=== PATIENT | male | born 1960 | race Hispanic/Latino ===

== ENCOUNTER 2022-10-23 07:16 | Day surgery (SDC) | payer OTHER, MEDICARE ==
[2022-10-21 10:25] VITALS: BP 137/77
[2022-10-21 10:40] LABS: BASOPHILS % (AUTO) 0.4 % (0.0-5.0); EOSINOPHILS % (AUTO) 3.6 % (0.0-8.0); HEMATOCRIT 45.7 % (42-54); LYMPHOCYTES % (AUTO) 23.3 % (21.0-51.0); MEAN CORPUSCULAR HEMOGLOBIN 30.1 pg (27.0-33.0); MEAN CORPUSCULAR HGB CONC 31.3 g/dL (32.0-36.0); MEAN CORPUSCULAR VOLUME 96.2 fL (79-99); MONOCYTES % (AUTO) 6.4 % (3.0-13.0); PLATELET COUNT (AUTO) 110 K/uL (130-400); RED BLOOD CELL COUNT(AUTO) 4.75 MIL/uL (4.50-6.20); RED CELL DISTRIBUTION WIDTH 14.8 % (11.0-15.5); WHITE BLOOD COUNT (AUTO) 6.9 K/uL (4.8-10.8)
[2022-10-21 10:49] LABS: INR 1.03 (0.85-1.15); PROTHROMBIN TIME 11.2 SEC (9.6-11.6)
[2022-10-21 10:50] LABS: CREATININE 1.4 mg/dL (0.5-1.5); POTASSIUM 4.9 mmol/L (3.5-5.1)
[2022-10-21 10:51] LABS: PARTIAL THROMBOPLASTIN TIME 28.9 SEC (26.3-35.5)
[2022-10-21 11:08] LABS: B-TYPE NATRIURETIC PEPTIDE 427 pg/mL (0-100)
[2022-10-21 11:15] LABS: APPEARANCE,URINE CLEAR (CLEAR); BILIRUBIN,URINE NEGATIVE (NEGATIVE); COLOR,URINE LIGHT-YELLOW (YELLOW); GLUCOSE, URINE (UA) NEGATIVE (NEGATIVE); KETONES,URINE NEGATIVE (NEGATIVE); LEUKOCYTE ESTERASE ,URINE NEGATIVE Leu/uL (NEGATIVE); NITRATE,URINE NEGATIVE (NEGATIVE); PH,URINE 5.5 (5.0-8.0); PROTEIN,URINE 20 mg/dL (NEGATIVE); UROBILINOGEN,URINE 0.2 mg/dL (0.2-1.0)
[2022-10-21 11:52] LABS: MUCUS,URINE RARE LPF (None Seen); RBC,URINE 0-1 /HPF (0-1)
[~2022-10-23] VITALS: Ht 172.7 cm; Wt 81.3 kg
[2022-10-23] VITALS (9 sets, daily range): BP systolic 106–117; BP diastolic 64–72
[~2022-10-23 07:16] MED LIST: ALLO100T PO; ASPI-1443 PO; ATOR40TA71 PO; CLOP75TA32 PO; DUTA0.5C37 PO; ERGO500093 PO; ESOM40CA54 PO; FISH1CAP27 PO; FLUT16H NASAL; FURO20TA4 PO; GABA-531 PO; LINA5TAB PO; LOSA25TA41 PO; METO-391 PO; NITR0.4T50 SL; PHARMACY COMMUNICATION MISC SCH; PRAM0.5T12 PO; albuterol sulfate IH
[2022-10-23] MEDS ORDERED: 0.9%NACL 1000ML 1,000 ML IV ONE (08:43)
[2022-10-23] MEDS ORDERED: HEPARIN 10,000 UNIT/10ML (1,000 UNIT/ML) VIAL ONE (11:36)
[2022-10-23] MEDS ORDERED: IOHEXOL 350 MG/ML 100ML INFUS..BTL IV ONE (11:37)
[2022-10-23] MEDS ORDERED: IOHEXOL-350 50ML VIAL IV ONE (11:37)
[2022-10-23] MEDS ORDERED: MEPERIDINE-PF 25 MG/ML SYG ONE ×2 (11:37→11:47)
[2022-10-23] MEDS ORDERED: MIDAZOLAM HCL 1 MG/ML 2ML VIAL ONE ×2 (11:37→11:47)
[2022-10-23] MEDS ORDERED: LIDOCAINE HCL 400MG/20ML VIAL ONE (11:37)
[2022-10-23] MEDS ORDERED: DEXTROSE 50%-WATER 50 ML DISP.SYRIN IV PRN (12:30)
[2022-10-23] MEDS ORDERED: GLUCAGON 1MG KIT 1 MG ML IM PRN (12:30)
[2022-10-23] MEDS ORDERED: 0.9%NACL 1000ML 1,000 ML IV SCH (12:30)
[2022-10-23] MEDS ORDERED: INSULIN HUMULIN R 100 UNIT/ML 3ML SQ SCH (16:30)
== END 2022-10-23 16:15 | disposition home or self-care (01) ==
LOC: DAH 07:16
PROVIDERS: ATTEND Internal Medicine Cardiovascular Disease
DX: I25.119 Atherosclerotic heart disease of native coronary artery with unspecified angina pectoris (principal); I25.82 Chronic total occlusion of coronary artery; E11.51 Type 2 diabetes mellitus with diabetic peripheral angiopathy without gangrene; E11.22 Type 2 diabetes mellitus with diabetic chronic kidney disease; I13.0 Hypertensive heart and chronic kidney disease with heart failure and stage 1 through stage 4 chronic kidney disease, or unspecified chronic kidney disease; N18.30 Chronic kidney disease, stage 3 unspecified; I50.42 Chronic combined systolic (congestive) and diastolic (congestive) heart failure; K21.9 Gastro-esophageal reflux disease without esophagitis; M19.90 Unspecified osteoarthritis, unspecified site; M06.9 Rheumatoid arthritis, unspecified; Z79.899 Other long term (current) drug therapy; Z79.01 Long term (current) use of anticoagulants; Z79.82 Long term (current) use of aspirin; Z98.890 Other specified postprocedural states; Z82.49 Family history of ischemic heart disease and other diseases of the circulatory system
CPT/HCPCS: 80048; 83880; 85025; 85610; 85730; 81001; 36415; 71045; 93005; 93459; 82948; C1894; C1760; J3490; J7030; J2250 ×2; J2175 ×2; J1644; Q9967; A4215; A4222; A4221; A4663; A4216; A4606; Q9965; A4223 ×3; 96360; 96361; 99156; 99157

== ENCOUNTER → 2023-06-16 | Outpatient (CLI) | payer OTHER, MEDICARE ==
[~2023-06-16] VITALS: Ht 172.7 cm; Wt 80.7 kg
[~2023-06-16] MED LIST changes: +BUME1TAB6 PO; +LEVO5TAB13 PO; -PHARMACY COMMUNICATION MISC SCH; +TADA5TAB5 PO
[2023-06-16 13:29] LABS: BASOPHILS # (AUTO) 0.03 K/uL (0.00-0.20); BASOPHILS % (AUTO) 0.5 % (0.0-5.0); EOSINOPHILS # (AUTO) 0.16 K/uL (0.00-0.70); EOSINOPHILS % (AUTO) 2.7 % (0.0-8.0); HEMATOCRIT 44.9 % (42-54); IMMATURE GRANULOCYTE ABSOLUTE 0.01 K/uL (0-1); LYMPHOCYTES # (AUTO) 1.4 K/uL (1.0-4.8); LYMPHOCYTES % (AUTO) 23.4 % (21.0-51.0); MONOCYTES # (AUTO) 0.3 K/uL (0.1-1.0); MONOCYTES % (AUTO) 5.3 % (3.0-13.0); NEUTROPHILS % (AUTO) 67.9 % (40.0-77.0); PLATELET COUNT (AUTO) 109 K/uL (130-400); RED BLOOD CELL COUNT(AUTO) 4.63 MIL/uL (4.50-6.20); RED CELL DISTRIBUTION WIDTH 14.5 % (11.0-15.5); WHITE BLOOD COUNT (AUTO) 5.9 K/uL (4.8-10.8)
[2023-06-16 13:32] LABS: CREATININE 1.6 mg/dL (0.5-1.5); POTASSIUM 4.3 mmol/L (3.5-5.1)
[2023-06-16 13:37] LABS: INR 3.37 (0.85-1.15)
[2023-06-16 14:13] LABS: PROTHROMBIN TIME 36.1 SEC (9.6-11.6)
[2023-06-16 14:18] VITALS: BP 124/56; PULSE 63; RESP 18
[2023-06-16 15:00] LABS: INR 2.73 (0.85-1.15); PROTHROMBIN TIME 29.7 SEC (9.6-11.6)
[2023-06-16 15:01] LABS: PARTIAL THROMBOPLASTIN TIME 29.9 SEC (26.3-35.5)
== END | disposition home or self-care (01) ==
LOC: DAH 10:00 → EDSTATUS 11:00
PROVIDERS: ATTEND Internal Medicine Cardiovascular Disease
DX: Z01.818 Encounter for other preprocedural examination (principal); I25.5 Ischemic cardiomyopathy; R06.02 Shortness of breath; R07.9 Chest pain, unspecified; I34.0 Nonrheumatic mitral (valve) insufficiency; I27.20 Pulmonary hypertension, unspecified; I25.10 Atherosclerotic heart disease of native coronary artery without angina pectoris; I10 Essential (primary) hypertension; E78.5 Hyperlipidemia, unspecified; Z79.82 Long term (current) use of aspirin; Z79.899 Other long term (current) drug therapy; Z95.1 Presence of aortocoronary bypass graft
CPT/HCPCS: 36415; 80048; 85025; 85610; 85730; 93005

== ENCOUNTER 2023-07-22 07:03 | Day surgery (SDC) | payer OTHER, MEDICARE ==
[2023-07-20 13:15] VITALS: BP 122/68; PULSE 67; RESP 20
[2023-07-20 13:15] LABS: BASOPHILS # (AUTO) 0.04 K/uL (0.00-0.20); BASOPHILS % (AUTO) 0.6 % (0.0-5.0); EOSINOPHILS # (AUTO) 0.25 K/uL (0.00-0.70); EOSINOPHILS % (AUTO) 3.8 % (0.0-8.0); IMMATURE GRANULOCYTE ABSOLUTE 0.04 K/uL (0-1); LYMPHOCYTES # (AUTO) 1.8 K/uL (1.0-4.8); LYMPHOCYTES % (AUTO) 27.8 % (21.0-51.0); MEAN CORPUSCULAR HEMOGLOBIN 32.6 pg (27.0-33.0); MEAN CORPUSCULAR HGB CONC 32.7 g/dL (32.0-36.0); MEAN CORPUSCULAR VOLUME 99.6 fL (79-99); MONOCYTES # (AUTO) 0.4 K/uL (0.1-1.0); MONOCYTES % (AUTO) 6.4 % (3.0-13.0); NEUTROPHILS % (AUTO) 60.8 % (40.0-77.0); PLATELET COUNT (AUTO) 155 K/uL (130-400); RED BLOOD CELL COUNT(AUTO) 4.82 MIL/uL (4.50-6.20); RED CELL DISTRIBUTION WIDTH 13.8 % (11.0-15.5); WHITE BLOOD COUNT (AUTO) 6.5 K/uL (4.8-10.8)
[2023-07-20 13:20] LABS: CREATININE 1.5 mg/dL (0.5-1.5)
[2023-07-20 13:31] LABS: INR < 0.93 (0.85-1.15); PROTHROMBIN TIME 10.8 SEC (9.6-11.6)
[2023-07-20 13:33] LABS: PARTIAL THROMBOPLASTIN TIME 29.3 SEC (26.3-35.5)
[~2023-07-22] VITALS: Ht 176.5 cm; Wt 77.9 kg
[2023-07-22] VITALS (12 sets, daily range): BP systolic 101–121; BP diastolic 55–83; PULSE 57–69; RESP 16
[~2023-07-22 07:03] MED LIST changes: -FLUT16H NASAL; -FURO20TA4 PO
[2023-07-22] MEDS ORDERED: MIDAZOLAM HCL 1 MG/ML 2ML VIAL ONE (07:17)
[2023-07-22] MEDS ORDERED: FENTANYL CITRATE PF 50 MCG/1 ML 2ML VIAL ONE (07:17)
[2023-07-22] MEDS ORDERED: NALOXONE HCL 0.4 MG/1 ML ML ONE (07:18)
[2023-07-22] MEDS ORDERED: FLUMAZENIL 0.1MG/1ML 5ML VIAL IV ONE (07:18)
[2023-07-22] MEDS ORDERED: 0.9%NACL 1000ML 1,000 ML IV ONE (07:18)
[2023-07-22] MEDS ORDERED: LIDOCAINE HCL 2% VISCOUS 15 ML UDCUP ONE (07:20)
== END 2023-07-22 13:05 | disposition home or self-care (01) ==
LOC: DAH 07:03
PROVIDERS: ATTEND Internal Medicine Cardiovascular Disease
DX: I25.5 Ischemic cardiomyopathy (principal); I08.1 Rheumatic disorders of both mitral and tricuspid valves; I27.20 Pulmonary hypertension, unspecified; I49.1 Atrial premature depolarization; I25.10 Atherosclerotic heart disease of native coronary artery without angina pectoris; I10 Essential (primary) hypertension; E78.5 Hyperlipidemia, unspecified; E11.9 Type 2 diabetes mellitus without complications; K21.9 Gastro-esophageal reflux disease without esophagitis; M19.90 Unspecified osteoarthritis, unspecified site; Z79.01 Long term (current) use of anticoagulants; Z79.899 Other long term (current) drug therapy; Z90.5 Acquired absence of kidney; Z82.49 Family history of ischemic heart disease and other diseases of the circulatory system; Z88.8 Allergy status to other drugs, medicaments and biological substances
CPT/HCPCS: 80048; 85025; 85610; 85730; 36415; 93005; 93312; 82948; 93325; J3010; J7030 ×2; J2250; A4615; A4215; A4657; A4222; A4663; A4216; A6223; A4606; A4223 ×3; 99152; J2310; J3490; G0500

== ENCOUNTER 2023-09-20 07:48 | Day surgery (SDC) | payer OTHER, MEDICARE ==
[2023-09-17 13:17] LABS: BASOPHILS # (AUTO) 0.01 K/uL (0.00-0.20); BASOPHILS % (AUTO) 0.2 % (0.0-5.0); EOSINOPHILS % (AUTO) 3.5 % (0.0-8.0); HEMATOCRIT 45.2 % (42-54); IMMATURE GRANULOCYTE ABSOLUTE 0.04 K/uL (0-1); LYMPHOCYTES # (AUTO) 1.1 K/uL (1.0-4.8); LYMPHOCYTES % (AUTO) 19.9 % (21.0-51.0); MEAN CORPUSCULAR HGB CONC 32.7 g/dL (32.0-36.0); MEAN CORPUSCULAR VOLUME 97.6 fL (79-99); MONOCYTES # (AUTO) 0.4 K/uL (0.1-1.0); NEUTROPHILS # (AUTO) 3.9 K/uL (1.8-7.7); NEUTROPHILS % (AUTO) 68.7 % (40.0-77.0); PLATELET COUNT (AUTO) 129 K/uL (130-400); RED BLOOD CELL COUNT(AUTO) 4.63 MIL/uL (4.50-6.20); RED CELL DISTRIBUTION WIDTH 13.2 % (11.0-15.5); WHITE BLOOD COUNT (AUTO) 5.7 K/uL (4.8-10.8)
[2023-09-17 13:22] LABS: APPEARANCE,URINE CLEAR (CLEAR); BILIRUBIN,URINE NEGATIVE (NEGATIVE); COLOR,URINE LIGHT-YELLOW (YELLOW); GLUCOSE, URINE (UA) NEGATIVE (NEGATIVE); KETONES,URINE NEGATIVE (NEGATIVE); LEUKOCYTE ESTERASE ,URINE NEGATIVE Leu/uL (NEGATIVE); NITRATE,URINE NEGATIVE (NEGATIVE); OCCULT BLOOD,URINE SMALL (NEGATIVE); PROTEIN,URINE 300 mg/dL (NEGATIVE); UROBILINOGEN,URINE 0.2 mg/dL (0.2-1.0)
[2023-09-17 13:23] LABS: ADD UA MICROSCOPIC YES
[2023-09-17 13:24] LABS: MUCUS,URINE RARE LPF (None Seen); RBC,URINE 0-1 /HPF (0-1); SQUAMOUS EPITHELIAL CELL,UR RARE /HPF (0-2); WBC,URINE 0-1 /HPF (0-1)
[2023-09-17 13:29] LABS: INR <= 0.93 (0.85-1.15); PROTHROMBIN TIME 10.8 SEC (9.6-11.6)
[2023-09-17 13:31] LABS: PARTIAL THROMBOPLASTIN TIME 29.3 SEC (26.3-35.5)
[2023-09-17 13:35] LABS: CREATININE 1.4 mg/dL (0.5-1.5); POTASSIUM 4.6 mmol/L (3.5-5.1)
[2023-09-17 13:45] LABS: B-TYPE NATRIURETIC PEPTIDE 233 pg/mL (0-100)
[2023-09-17 14:00] VITALS: BP 140/72; PULSE 67; RESP 18
[~2023-09-20] VITALS: Ht 172.7 cm; Wt 82.9 kg
[2023-09-20] VITALS (11 sets, daily range): BP systolic 114–138; BP diastolic 66–83; PULSE 67–98; RESP 11–18
[~2023-09-20 07:48] MED LIST changes: -BUME1TAB6 PO; -CLOP75TA32 PO; +DAPA5TAB PO; +FLUT1AER IH; -GABA-531 PO; -LINA5TAB PO; -TADA5TAB5 PO; -albuterol sulfate IH
[2023-09-20] MEDS: 0.9%NACL 1000ML 1,000 ML IV ONE (08:33)
[2023-09-20] MEDS ORDERED: MEPERIDINE-PF 25 MG/ML SYG ONE (12:04)
[2023-09-20] MEDS ORDERED: LIDOCAINE HCL 400MG/20ML VIAL ONE (12:04)
[2023-09-20] MEDS ORDERED: IOHEXOL 350 MG/ML 100ML INFUS..BTL IV ONE (12:05)
[2023-09-20] MEDS ORDERED: MIDAZOLAM HCL 1 MG/ML 2ML VIAL ONE (12:05)
[2023-09-20] MEDS ORDERED: IOHEXOL-350 50ML VIAL IV ONE (12:05)
[2023-09-20] MEDS ORDERED: NITROGLYCERIN 50MG VIAL ONE (12:06)
[2023-09-20] MEDS ORDERED: HEPARIN 10,000 UNIT/10ML (1,000 UNIT/ML) VIAL ONE (12:06)
[2023-09-20] MEDS ORDERED: DEXTROSE 50%-WATER 50 ML DISP.SYRIN IV PRN (13:30)
[2023-09-20] MEDS ORDERED: GLUCAGON 1MG KIT 1 MG ML IM PRN (13:30)
[2023-09-20] MEDS ORDERED: INSULIN HUMULIN R 100 UNIT/ML 3ML SQ SCH (16:30)
== END 2023-09-20 18:55 | disposition home or self-care (01) ==
LOC: DAH 07:48 → EDSTATUS 12:00 → DAH 18:55
PROVIDERS: ATTEND Internal Medicine Cardiovascular Disease
DX: I34.0 Nonrheumatic mitral (valve) insufficiency (principal); I25.10 Atherosclerotic heart disease of native coronary artery without angina pectoris; I27.20 Pulmonary hypertension, unspecified; E11.22 Type 2 diabetes mellitus with diabetic chronic kidney disease; I13.0 Hypertensive heart and chronic kidney disease with heart failure and stage 1 through stage 4 chronic kidney disease, or unspecified chronic kidney disease; N18.9 Chronic kidney disease, unspecified; I50.32 Chronic diastolic (congestive) heart failure; E78.5 Hyperlipidemia, unspecified; K21.9 Gastro-esophageal reflux disease without esophagitis; M19.90 Unspecified osteoarthritis, unspecified site; Z79.01 Long term (current) use of anticoagulants; Z79.899 Other long term (current) drug therapy; Z79.82 Long term (current) use of aspirin; Z98.890 Other specified postprocedural states; Z90.5 Acquired absence of kidney; Z82.49 Family history of ischemic heart disease and other diseases of the circulatory system; Z95.1 Presence of aortocoronary bypass graft
CPT/HCPCS: 80048; 83880; 85025; 85610; 85730; 81001; 36415; 71045; 93005; 93461; 82948 ×2; C1894 ×2; C1760; J3490 ×2; J7030; J2250; J2175; J1644; Q9967; A4215; A4222; A4221; A4663; A4216; A4606; Q9965; A4223 ×3; 99156; 99157

== ENCOUNTER 2024-02-20 00:13 | Inpatient (IN) | payer OTHER, MEDICARE ==
[~2024-02-20] VITALS: Ht 172.7 cm; Wt 83.8 kg
[~2024-02-20 00:13] MED LIST changes: +ATOR-2 PO; -ATOR40TA71 PO; -ESOM40CA54 PO; +ESOM40CA66 PO; -FLUT1AER IH; +FURO20TA6 PO; -LEVO5TAB13 PO; +LINA5TAB PO; +LOSA-418 PO; -LOSA25TA41 PO; -METO-391 PO; +METO50 PO; -NITR0.4T50 SL
[2024-02-20 00:45] LABS: BASOPHILS # (AUTO) 0.03 K/uL (0.00-0.20); BASOPHILS % (AUTO) 0.4 % (0.0-5.0); EOSINOPHILS # (AUTO) 0.39 K/uL (0.00-0.70); EOSINOPHILS % (AUTO) 5.1 % (0.0-8.0); HEMATOCRIT 33.7 % (42-54); IMMATURE GRANULOCYTE ABSOLUTE 0.05 K/uL (0-1); LYMPHOCYTES # (AUTO) 1.4 K/uL (1.0-4.8); LYMPHOCYTES % (AUTO) 18.7 % (21.0-51.0); MEAN CORPUSCULAR HEMOGLOBIN 30.4 pg (27.0-33.0); MEAN CORPUSCULAR HGB CONC 33.5 g/dL (32.0-36.0); MEAN CORPUSCULAR VOLUME 90.6 fL (79-99); MONOCYTES # (AUTO) 0.6 K/uL (0.1-1.0); MONOCYTES % (AUTO) 8.4 % (3.0-13.0); NEUTROPHILS # (AUTO) 5.1 K/uL (1.8-7.7); NEUTROPHILS % (AUTO) 66.7 % (40.0-77.0); PLATELET COUNT (AUTO) 175 K/uL (130-400); RED BLOOD CELL COUNT(AUTO) 3.72 MIL/uL (4.50-6.20); RED CELL DISTRIBUTION WIDTH 14.2 % (11.0-15.5); WHITE BLOOD COUNT (AUTO) 7.6 K/uL (4.8-10.8)
[2024-02-20 00:49] LABS: CREATININE 3.2 mg/dL (0.5-1.3); POTASSIUM 4.1 mmol/L (3.5-5.1)
[2024-02-20 00:54] LABS: ALBUMIN 0.8 g/dL (3.5-5.0); BILIRUBIN,TOTAL 0.2 mg/dL (0.2-1.0); TOTAL PROTEIN, SERUM 5.4 g/dL (6.0-8.3)
[2024-02-20 01:04] LABS: B-TYPE NATRIURETIC PEPTIDE 182 pg/mL (0-100)
[2024-02-20] MEDS: FUROSEMIDE 40MG VIAL IV STA (03:13)
[2024-02-20 03:49] LABS: APPEARANCE,URINE CLEAR (CLEAR); BILIRUBIN,URINE NEGATIVE (NEGATIVE); COLOR,URINE LIGHT-YELLOW (YELLOW); GLUCOSE, URINE (UA) 500 mg/dL (NEGATIVE); KETONES,URINE NEGATIVE (NEGATIVE); LEUKOCYTE ESTERASE ,URINE NEGATIVE Leu/uL (NEGATIVE); NITRATE,URINE NEGATIVE (NEGATIVE); OCCULT BLOOD,URINE SMALL (NEGATIVE); PROTEIN,URINE 600 mg/dL (NEGATIVE); UROBILINOGEN,URINE 0.2 mg/dL (0.2-1.0)
[2024-02-20 03:50] LABS: ADD UA MICROSCOPIC YES
[2024-02-20] MEDS ORDERED: MORPHINE 4 MG SYG IV PRN (04:00)
[2024-02-20] MEDS ORDERED: ZOLPIDEM TARTRATE 5 MG TAB PO PRN (04:00)
[2024-02-20 04:05] LABS: BACTERIA,URINE RARE /HPF (None Seen); MUCUS,URINE RARE LPF (None Seen); SQUAMOUS EPITHELIAL CELL,UR RARE /HPF (0-2)
[2024-02-20 04:50] VITALS: BP 143/73; PULSE 85; RESP 20
[2024-02-20 05:27] LABS: CREATININE,URINE RANDOM 14.21 mg/dL (30-135)
[2024-02-20 05:30] VITALS: O2SAT 97
[2024-02-20] MEDS ORDERED: GABA300C PO (05:35)
[2024-02-20] MEDS ORDERED: METO25TA6 PO (05:35)
[2024-02-20] MEDS ORDERED: ONDA-104 PO (05:35)
[2024-02-20] MEDS: INSULIN LISPRO 100 UNIT/ML 3ML SQ SCH (06:31)
[2024-02-20 08:21] VITALS: BP 136/71; PULSE 76; RESP 18
[2024-02-20] MEDS: PANTOPRAZOLE 40 MG TAB DR PO SCH (09:50)
[2024-02-20] MEDS: HEPARIN 5,000 UNIT VIAL SQ SCH (09:51)
[2024-02-20 11:52] VITALS: BP 138/83; PULSE 76; RESP 18
[2024-02-20 15:52] VITALS: BP 146/79; PULSE 77; RESP 18
[2024-02-20 17:21] LABS: INR 1.03 (0.85-1.15); PROTHROMBIN TIME 11.1 SEC (9.6-11.6)
[2024-02-20 17:22] LABS: PARTIAL THROMBOPLASTIN TIME 30.2 SEC (26.3-35.5)
[2024-02-20 20:00] VITALS: BP 146/61; PULSE 87; RESP 18; O2SAT 98
[2024-02-20] MEDS: ACETAMINOPHEN 325 MG TAB PO PRN (22:38)
[2024-02-20] MEDS: ONDANSETRON 4MG INJ IV PRN (22:38)
[2024-02-21] VITALS (18 sets, daily range): BP systolic 121–150; BP diastolic 58–87; PULSE 82–103; RESP 18–20; O2SAT 98
[2024-02-21 05:01] LABS: HEMOGLOBIN A1C 6.6 % (4.0-6.0)
[2024-02-21 05:25] LABS: ALBUMIN 0.7 g/dL (3.5-5.0); BILIRUBIN,TOTAL 0.3 mg/dL (0.2-1.0); CREATININE 3.2 mg/dL (0.5-1.3); MAGNESIUM 1.6 mg/dL (1.80-2.40); PHOSPHORUS 5.2 mg/dL (2.5-4.9)
[2024-02-21 05:44] LABS: BASOPHILS # (AUTO) 0.03 K/uL (0.00-0.20); BASOPHILS % (AUTO) 0.6 % (0.0-5.0); EOSINOPHILS # (AUTO) 0.32 K/uL (0.00-0.70); EOSINOPHILS % (AUTO) 6.4 % (0.0-8.0); IMMATURE GRANULOCYTE ABSOLUTE 0.05 K/uL (0-1); LYMPHOCYTES # (AUTO) 1.2 K/uL (1.0-4.8); MEAN CORPUSCULAR HEMOGLOBIN 30.1 pg (27.0-33.0); MEAN CORPUSCULAR HGB CONC 32.9 g/dL (32.0-36.0); MEAN CORPUSCULAR VOLUME 91.4 fL (79-99); MONOCYTES # (AUTO) 0.4 K/uL (0.1-1.0); MONOCYTES % (AUTO) 8.2 % (3.0-13.0); NEUTROPHILS % (AUTO) 59.8 % (40.0-77.0); NUCLEATED RED BLOOD CELLS 0.4 % (0.0-0.19); PLATELET COUNT (AUTO) 126 K/uL (130-400); RED BLOOD CELL COUNT(AUTO) 3.39 MIL/uL (4.50-6.20); RED CELL DISTRIBUTION WIDTH 14.4 % (11.0-15.5)
[2024-02-21 10:17] LABS: SPECIMENTYPE,BODY FLUID PLEURAL
[2024-02-21 10:18] LABS: APPEARANCE BODY FLUID CLOUDY (CLEAR); COLOR,BODY FLUID DARK YELLOW (LT YELLOW); TOTAL VOLUME,BODY FLUID 1500 mL
[2024-02-21 12:49] LABS: BF LYMPHOCYTE 19 %; BF MACROPHAGE 27; BF MONOCYTE 19 %; BF TOTAL CELLS COUNTED 100
[2024-02-21 13:00] LABS: BODY FLUID RBC 4525 /cu. mm.; BODY FLUID WBC 973 /cu. mm.
[2024-02-21] MEDS: BUMETANIDE 1 MG TAB PO SCH (16:20)
[2024-02-21] MEDS: METOPROLOL TARTRATE 25 MG TAB PO SCH (20:47)
[2024-02-21] MEDS: GABAPENTIN 300 MG CAPSULE PO SCH (20:47)
[2024-02-22] VITALS (8 sets, daily range): BP systolic 130–146; BP diastolic 75–82; PULSE 71–97; RESP 18–20; O2SAT 97–98
[2024-02-22 04:56] LABS: BASOPHILS # (AUTO) 0.08 K/uL (0.00-0.20); BASOPHILS % (AUTO) 0.7 % (0.0-5.0); EOSINOPHILS # (AUTO) 0.56 K/uL (0.00-0.70); HEMATOCRIT 39.8 % (42-54); LYMPHOCYTES # (AUTO) 3.2 K/uL (1.0-4.8); LYMPHOCYTES % (AUTO) 28.4 % (21.0-51.0); MEAN CORPUSCULAR HEMOGLOBIN 29.7 pg (27.0-33.0); MEAN CORPUSCULAR HGB CONC 32.4 g/dL (32.0-36.0); MEAN CORPUSCULAR VOLUME 91.5 fL (79-99); MONOCYTES # (AUTO) 0.7 K/uL (0.1-1.0); MONOCYTES % (AUTO) 6.3 % (3.0-13.0); NEUTROPHILS # (AUTO) 6.5 K/uL (1.8-7.7); NEUTROPHILS % (AUTO) 58.7 % (40.0-77.0); PLATELET COUNT (AUTO) 253 K/uL (130-400); RED BLOOD CELL COUNT(AUTO) 4.35 MIL/uL (4.50-6.20); RED CELL DISTRIBUTION WIDTH 14.3 % (11.0-15.5); WHITE BLOOD COUNT (AUTO) 11.1 K/uL (4.8-10.8)
[2024-02-22 05:25] LABS: BILIRUBIN,TOTAL 0.3 mg/dL (0.2-1.0); CREATININE 3.2 mg/dL (0.5-1.3); MAGNESIUM 1.5 mg/dL (1.80-2.40); POTASSIUM 4.3 mmol/L (3.5-5.1); TOTAL PROTEIN, SERUM 6.1 g/dL (6.0-8.3)
[2024-02-22 05:44] LABS: B-TYPE NATRIURETIC PEPTIDE 276 pg/mL (0-100)
[2024-02-22] MEDS: (Dapagliflozin Propanediol (Farxiga) 5 MG) PO SCH (09:00)
[2024-02-22] MEDS: ASPIRIN 81 MG EC TAB PO SCH (10:32)
[2024-02-22] MEDS: LINAGLIPTIN 5 MG TABLET PO SCH (10:32)
[2024-02-22] MEDS: ATORVASTATIN 40 MG TABLET PO SCH (10:32)
[2024-02-22] MEDS: LOSARTAN 50 MG TABLET PO SCH (10:33)
[2024-02-22] MEDS: MAGNESIUM 2GM PREMIX 50ML 50 ML IV PRN (13:25)
[2024-02-22] MEDS: MORPHINE 2 MG SYG IV PRN (19:10)
[2024-02-23 04:31] VITALS: BP 126/80; PULSE 89; RESP 18
[2024-02-23 05:10] LABS: BASOPHILS # (AUTO) 0.04 K/uL (0.00-0.20); BASOPHILS % (AUTO) 0.6 % (0.0-5.0); EOSINOPHILS # (AUTO) 0.45 K/uL (0.00-0.70); EOSINOPHILS % (AUTO) 6.7 % (0.0-8.0); HEMATOCRIT 35.9 % (42-54); IMMATURE GRANULOCYTE ABSOLUTE 0.06 K/uL (0-1); LYMPHOCYTES # (AUTO) 1.4 K/uL (1.0-4.8); LYMPHOCYTES % (AUTO) 21.4 % (21.0-51.0); MEAN CORPUSCULAR HEMOGLOBIN 29.7 pg (27.0-33.0); MEAN CORPUSCULAR HGB CONC 31.2 g/dL (32.0-36.0); MEAN CORPUSCULAR VOLUME 95.2 fL (79-99); MONOCYTES # (AUTO) 0.6 K/uL (0.1-1.0); MONOCYTES % (AUTO) 9.3 % (3.0-13.0); NEUTROPHILS # (AUTO) 4.1 K/uL (1.8-7.7); NEUTROPHILS % (AUTO) 61.1 % (40.0-77.0); PLATELET COUNT (AUTO) 143 K/uL (130-400); RED BLOOD CELL COUNT(AUTO) 3.77 MIL/uL (4.50-6.20); RED CELL DISTRIBUTION WIDTH 14.4 % (11.0-15.5); WHITE BLOOD COUNT (AUTO) 6.7 K/uL (4.8-10.8)
[2024-02-23 05:37] LABS: ALBUMIN 0.8 g/dL (3.5-5.0); BILIRUBIN,TOTAL 0.2 mg/dL (0.2-1.0); CREATININE 2.9 mg/dL (0.5-1.3); MAGNESIUM 1.9 mg/dL (1.80-2.40); POTASSIUM 4.4 mmol/L (3.5-5.1); TOTAL PROTEIN, SERUM 5.1 g/dL (6.0-8.3)
[2024-02-23 05:46] LABS: B-TYPE NATRIURETIC PEPTIDE 153 pg/mL (0-100)
[2024-02-23 07:58] VITALS: BP 129/79; PULSE 98; RESP 18
[2024-02-23 09:00] VITALS: O2SAT 98
[2024-02-23 12:00] VITALS: BP 114/71; PULSE 75; RESP 17
[2024-02-23 16:00] VITALS: BP 146/73; PULSE 76; RESP 16
== END 2024-02-23 19:15 | disposition home or self-care (01) | DRG 291 ==
LOC: EDH 00:13 → EDHIP 03:32 → 4DH 05:06
PROVIDERS: ADMIT Internal Medicine; ATTEND Internal Medicine
PROC: 0W993ZZ Drainage of Right Pleural Cavity, Percutaneous Approach (ICD-10-PCS; principal; 2024-02-21)
DX: I13.0 Hypertensive heart and chronic kidney disease with heart failure and stage 1 through stage 4 chronic kidney disease, or unspecified chronic kidney disease (principal); I50.31 Acute diastolic (congestive) heart failure; N17.9 Acute kidney failure, unspecified; J90 Pleural effusion, not elsewhere classified; J98.11 Atelectasis; E11.649 Type 2 diabetes mellitus with hypoglycemia without coma; E78.00 Pure hypercholesterolemia, unspecified; N18.32 Chronic kidney disease, stage 3b; E11.22 Type 2 diabetes mellitus with diabetic chronic kidney disease; C61 Malignant neoplasm of prostate; E11.65 Type 2 diabetes mellitus with hyperglycemia; M10.9 Gout, unspecified; I25.10 Atherosclerotic heart disease of native coronary artery without angina pectoris; J45.909 Unspecified asthma, uncomplicated; J98.4 Other disorders of lung; Z80.42 Family history of malignant neoplasm of prostate; Z82.49 Family history of ischemic heart disease and other diseases of the circulatory system; Z83.3 Family history of diabetes mellitus; Z88.8 Allergy status to other drugs, medicaments and biological substances; Z85.46 Personal history of malignant neoplasm of prostate; Z85.528 Personal history of other malignant neoplasm of kidney; Z87.891 Personal history of nicotine dependence; Z90.5 Acquired absence of kidney; Z95.1 Presence of aortocoronary bypass graft; Z95.3 Presence of xenogenic heart valve; Z90.49 Acquired absence of other specified parts of digestive tract; Z79.01 Long term (current) use of anticoagulants; Z95.2 Presence of prosthetic heart valve
CPT/HCPCS: 32555; 36415; 71045; 71250; 76376; 76770; 80053; 81001; 82550; 82570; 82948; 83036; 83735; 83880; 83935; 84100; 84300; 84484; 85025; 85610; 85730; 87071; 87205; 89051; 93005; 93306; C1729; G0378; J1644; J1940; J2270; J2405; J3475

== ENCOUNTER → 2024-10-05 | Outpatient (CLI) | payer OTHER, MEDICARE ==
[~2024-10-05] MED LIST changes: +GABA300C PO; +METO25TA6 PO; -METO50 PO; +ONDA-104 PO
[2024-10-05 16:56] LABS: CREATININE 1.5 mg/dL (0.5-1.3); MAGNESIUM 1.8 mg/dL (1.80-2.40); POTASSIUM 4.4 mmol/L (3.5-5.1); TOTAL PROTEIN, SERUM 6.5 g/dL (6.0-8.3)
== END | disposition home or self-care (01) ==
LOC: LAB 15:00
PROVIDERS: ATTEND Nurse Practitioner Acute Care
DX: I10 Essential (primary) hypertension (principal); E78.5 Hyperlipidemia, unspecified
CPT/HCPCS: 36415; 80053; 83735; 83880

== ENCOUNTER → 2024-10-13 | Outpatient (CLI) | payer OTHER, MEDICARE ==
--- NOTE | 2024-10-13 12:03 | HMCIMG ---
ULTRASOUND SOFT TISSUE GROIN INDICATION: Aneurysm of right arm? COMPARISON: None TECHNIQUE: Multiplanar sonographic images of the right groin were obtained earlier in real-time using grayscale and color Doppler technique, and subsequently made available for review. FINDINGS/IMPRESSION: 5.6 x 3.8 x 1.7 cm predominantly anechoic slightly septated nonvascular fluid collection demonstrated along the right groin perhaps representing seroma or hematoma.
== END | disposition home or self-care (01) ==
LOC: RAH 11:02
PROVIDERS: ATTEND Internal Medicine Cardiovascular Disease
DX: I72.4 Aneurysm of artery of lower extremity (principal)
CPT/HCPCS: 76882

== ENCOUNTER 2025-02-16 06:52 | Day surgery (SDC) | payer OTHER, MEDICARE ==
[2025-02-14 13:56] LABS: IMMATURE GRANULOCYTE ABSOLUTE 0.06 K/uL (0-1); NUCLEATED RED BLOOD CELLS 0.0 % (0.0-0.19); PLATELET COUNT (AUTO) 156 K/uL (130-400); RED BLOOD CELL COUNT(AUTO) 3.75 MIL/uL (4.50-6.20); RED CELL DISTRIBUTION WIDTH 15.9 % (11.0-15.5); WHITE BLOOD COUNT (AUTO) 8.5 K/uL (4.8-10.8)
[2025-02-14 14:09] LABS: CREATININE 1.2 mg/dL (0.5-1.3); GLOMERULAR FILTR. RATE CALC 67.0 mL/min (>90); GLUCOSE,RANDOM 173.0 mg/dL (70-105); SODIUM SERUM 139.0 mmol/L (136-145); UREA NITROGEN, BLOOD 40.0 mg/dL (7-18)
[2025-02-14 14:10] LABS: INR 1.03 (0.85-1.15)
[2025-02-14 14:56] VITALS: BP 98/53; PULSE 92; RESP 18; TEMP 97.9
--- NOTE | 2025-02-15 07:25 | EKG ---
[facility] Test Date: 2025-02-14 Test Time: 13:45:14 Pat Name: VANDANA MCGEE Department: [facility] Room: Gender: M Recruiting Scheduler: [id number] : 1960 Requested By: Scarlett FREEDMAN Order Number: [id number] Reading MD: Paco Frost Measurements Intervals [place] Rate: 92 P: 14 IN: 143 QRS: 85 QRSD: 91 T: 42 QT: 373 QTc: 462 Interpretive Statements Sinus rhythm Anteroseptal infarct, age indeterminate Nonspecific STT abnormality Compared to ECG 02/20/2024 00:44:41 Myocardial infarct finding now present Electronically Signed On 02-15-2025 16:44:23 CDT by Paco Frost Please click the below link to view image of tracing.
--- NOTE | 2025-02-15 16:12 | NUR ---
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 script was called in to pharmacy by office and received orders to repeat potassium in am. pt was notified about script by office
[~2025-02-16] VITALS: Ht 172.7 cm; Wt 70.1 kg
[2025-02-16] VITALS (23 sets, daily range): BP systolic 89–126; BP diastolic 55–86; PULSE 81–96; RESP 15–26; TEMP 97.4–98.1
[~2025-02-16 06:52] MED LIST changes: +ALBUTEROL IH; -DAPA5TAB PO; +DICY-20 PO; -DUTA0.5C37 PO; +FLUT16H NS; -FURO20TA6 PO; -LOSA-418 PO; +LOSA25TA41 PO; +METO-391 PO; -METO25TA6 PO; -ONDA-104 PO; +ONDA-105 PO
[2025-02-16] MEDS ORDERED: LIDOCAINE HCL 2% VISCOUS 15 ML UDCUP PO ONE (07:30)
[2025-02-16] MEDS: 0.9%NACL 1000ML 1,000 ML IV SCH (07:35)
--- NOTE | 2025-02-16 11:59 | NUR ---
FRANCO completed at bedside Dr England with [place] COE and Nurses Kaitlynn and Ana at beside Versed 2 mg @ 1132 SIVP Fentanyl 25 mcg @ 1132 SIVP Versed 1 mg @ 1135 SIVP Fentanyl 12,5 mcg @ 1135 SIVP Versed 1 mg @ 1137 SIVP Fentanyl 12,5 mcg @ 1137 SIVP Tube inserted by Dr England @ 1138 and removed @ 1146 Patient tolerated procedure without adverse effects and is responsive to stimulis Dr England stated iformteFamilytatewillspeaktotemattefollowupappoitmet, Addendum: 02/22/25 at 1420 by KAITLYNN MCCLURE RN RN Amend note: FRANCO started with Dr England @ 1130 am Procedure ended @ [address] England out of room @ 1150 am
[2025-02-16] MEDS: MIDAZOLAM HCL 1 MG/ML 2ML VIAL IVP ONE (12:46)
--- NOTE | 2025-02-16 14:21 | NUR ---
Full and complete discharge instructions given to Patient and Family both verbally and in writing. Explained FRANCO procedure precautions and follow up. All questions answered. PIV removed with catheter tip intact. Home with . W/C to POV to home
--- NOTE | 2025-02-20 07:20 | HMCSR ---
APPROVED REPORT EXAM: Transesophageal echocardiogram with color flow Doppler. 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 15 mL 2% Viscous Lidocaine was given as a topical anesthetic prior to the administration of the consc ious sedation. Type of Sedation: Conscious Sedation Sedation was administered by Aisha SINGH. Sedation was achieved with refer to chart intravenously. Transesophageal probe was inserted and advanced into esophagus without difficulty by Dr. England. FRANCO was performed and images were obtained, probe was removed without complications. Throughout the procedure, the blood pressure, pulse oximetry, cardiac rhythm, and rate were monitored . The patient tolerated the procedure without adverse effects. Recovery from conscious sedation was une ventful and vital signs were stable. Left Ventricle Left ventricular cavity size is normal. There is normal left ventricular wall thickness. LVEF is 40-4 5%. Echo dropout noted in the superior interventricular septum, which may be due to shadowing artifac t. No obvious shunting identified. No left ventricle thrombus noted on this study. Right Ventricle Right ventricle is grossly normal in size. Atria The left atrium is mildly dilated. No thrombus is visualized in the left atrial appendage. Interatria l septum is intact without evidence of ASD or PFO by color doppler. The right atrium size is normal. Aortic Valve The aortic valve is normal in structure and function. No aortic regurgitation is present. There is no aortic valvular stenosis. 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 Severe, anterior mitral perivalvular leak present. Pulmonary venous flow reversal is noted. There is no mitral valve stenosis. Tricuspid Valve Tricuspid valve is grossly normal in structure. There is moderate tricuspid valve regurgitation noted , RVSP 89mmHg, consistent with severe pulmonary hypertension. Pulmonic Valve The pulmonary valve is normal in structure. Great Vessels The aortic root is normal in size. Pericardium No pericardial effusion. Conclusion Left ventricular cavity size is normal. LVEF is 40-45%. Echo dropout noted in the superior interventricular septum, which may be due to shadowing artifact. No obvious shunting identified. No left ventricle thrombus noted on this study. Right ventricle is grossly normal in size. The left atrium is mildly dilated. No thrombus is visualized in the left atrial appendage. The right atrium size is normal. Interatrial septum is intact without evidence of ASD or PFO by color doppler. The aortic valve is normal in structure and function. There is no mitral valve stenosis. 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 Severe, anterior mitral perivalvular leak present. Pulmonary venous flow reversal is noted. Tricuspid valve is grossly normal in structure. There is moderate tricuspid valve regurgitation noted, RVSP 89mmHg, consistent with severe pulmonary hypertension. The pulmonary valve is normal in structure. The aortic root is normal in size. No pericardial effusion.
--- NOTE | 2025-02-26 18:22 | NUR ---
LATE ENTRY FOR 02/16/25 FRANCO Procedure start time 1132 Procedure end 1140
== END 2025-02-16 14:15 | disposition home or self-care (01) ==
LOC: DAH 06:52
PROVIDERS: ATTEND Internal Medicine Cardiovascular Disease
DX: I05.0 Rheumatic mitral stenosis (principal); I25.10 Atherosclerotic heart disease of native coronary artery without angina pectoris; I10 Essential (primary) hypertension; E78.5 Hyperlipidemia, unspecified; E11.9 Type 2 diabetes mellitus without complications; K21.9 Gastro-esophageal reflux disease without esophagitis; N40.0 Benign prostatic hyperplasia without lower urinary tract symptoms; M19.90 Unspecified osteoarthritis, unspecified site; Z79.01 Long term (current) use of anticoagulants; Z79.82 Long term (current) use of aspirin; Z88.1 Allergy status to other antibiotic agents; Z79.899 Other long term (current) drug therapy; Z98.890 Other specified postprocedural states
CPT/HCPCS: 80048; 85025; 85610; 85730; 36415 ×2; 93005; 99152; 84132; 82948; 93325; 93312; A4223 ×3; J3010; J7030; J2250; A4615; A4215; A4222; A4221; A4663; A4216; A4606; J2312; J3490; G0500